=== PATIENT | male | born 1935 | race Hispanic/Latino ===

== ENCOUNTER 2017-11-04 17:26 | Emergency (ER) | payer MEDICARE, OTHER ==
[2017-11-04] MEDS ORDERED: Silver Sulfadiazine 1% Cream 50 GM JAR ONE (18:19)
== END 2017-11-04 18:49 | disposition home or self-care (01) ==
LOC: ERS 17:26
DX: T23.241A Burn of second degree of multiple right fingers (nail), including thumb, initial encounter (principal); T21.12XA Burn of first degree of abdominal wall, initial encounter; T31.0 Burns involving less than 10% of body surface; E11.9 Type 2 diabetes mellitus without complications; I10 Essential (primary) hypertension; Z79.84 Long term (current) use of oral hypoglycemic drugs; Z79.899 Other long term (current) drug therapy; X08.8XXA Exposure to other specified smoke, fire and flames, initial encounter
CPT/HCPCS: 16020

== ENCOUNTER 2017-11-07 10:42 | Emergency (ER) | payer MEDICARE, OTHER ==
[2017-11-07] MEDS ORDERED: Bacitracin Zinc 1 Packet ONE (12:30)
== END 2017-11-07 12:41 | disposition home or self-care (01) ==
LOC: ERS 10:42
DX: T23.231D Burn of second degree of multiple right fingers (nail), not including thumb, subsequent encounter (principal); I10 Essential (primary) hypertension; E11.9 Type 2 diabetes mellitus without complications; Z79.899 Other long term (current) drug therapy; Z79.84 Long term (current) use of oral hypoglycemic drugs; X08.8XXA Exposure to other specified smoke, fire and flames, initial encounter
CPT/HCPCS: 16020

== ENCOUNTER 2017-11-10 09:21 | Outpatient (CLI) | payer MEDICARE, OTHER ==
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
[2017-11-10] MEDS ORDERED: Sodium Chloride 0.9% 15 ML NEB ONE (18:00)
== END 2017-11-10 09:22 | disposition home or self-care (01) ==
LOC: WCC 09:21
PROVIDERS: ATTEND Family Medicine
DX: T23.251D Burn of second degree of right palm, subsequent encounter (principal); E11.9 Type 2 diabetes mellitus without complications; M19.90 Unspecified osteoarthritis, unspecified site; I10 Essential (primary) hypertension
CPT/HCPCS: 97139; 97597; 97598; G0463; 99203; A4218

== ENCOUNTER 2017-11-17 09:11 | Outpatient (CLI) | payer MEDICARE, OTHER ==
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
== END 2017-11-17 09:12 | disposition home or self-care (01) ==
LOC: WCC 09:11
PROVIDERS: ATTEND Family Medicine
DX: T23.251D Burn of second degree of right palm, subsequent encounter (principal)
CPT/HCPCS: 97602

== ENCOUNTER 2020-08-18 09:04 | Observation (INO) | payer MEDICARE, OTHER ==
[2020-08-18] MEDS ORDERED: Cyclobenzaprine 10 MG TAB ONE (09:41)
[2020-08-18] MEDS ORDERED: Ketorolac Tromethamine 30 MG/ML VIAL ONE (09:41)
[2020-08-18 09:53] LABS: #Eosinphils 0.4 thou/uL (0.0-0.7); #Lymphocytes 1.8 thou/uL (1.20-3.40); #Monocytes 0.8 thou/uL (0.11-0.59); #Neutrophils 4.8 thou/uL (1.40-6.50); %Basophils 0.5 % (0.0-1.0); %Eosinophils 4.8 % (0.0-10.0); %Lymphocytes 23.5 % (21.0-51.0); %Monocytes 9.8 % (0.0-10.0); %Neutrophils 61.4 % (42.0-75.0); Hemoglobin 12.6 g/dL (14.0-18.0); Mean Corpuscular HGB CONC 32.4 g/dL (32.0-36.0); Mean Corpuscular Hemoglobin 30.1 pg (27.0-31.0); Mean Corpuscular Volume 92.9 fL (78.0-98.0); Mean Platelet Volume 7.8 fL (7.4-10.4); Platelet Count 229 thou/uL (130-400); RBC Distribution Width 12.2 % (11.5-14.5); Red Blood Cell (RBC) Count 4.18 mill/uL (4.70-6.10); White Blood Cell (WBC) Count 7.8 thou/uL (4.8-10.8)
[2020-08-18 10:27] LABS: ALT (SGPT) 14 U/L (8-55); AST (SGOT) 17 U/L (5-34); Albumin 4.2 g/dL (3.4-4.8); Alkaline Phosphatase 106 U/L (40-110); Anion Gap 16 mmol/L (10-20); BUN (Urea Nitrogen) 15 mg/dL (8.4-25.7); Bilirubin, Total 0.7 mg/dL (0.2-1.2); Calc. Creatinine Clearance 0 mL/min (70-130); Calcium 9.3 mg/dL (7.8-10.44); Carbon Dioxide 23 mmol/L (23-31); Chloride 100 mmol/L (98-107); Globulin 3.8 g/dL (2.4-3.5); Glucose 420 mg/dL (83-110); Potassium 4.4 mmol/L (3.5-5.1); Sodium 135 mmol/L (136-145)
[2020-08-18] MEDS ORDERED: Aspirin Chewable 81 MG TAB ONE (13:25)
[2020-08-18] MEDS ORDERED: HYDROcodone/Acetaminophen 7.5/325 mg Tablet PO PRN (13:56)
[2020-08-18] MEDS ORDERED: HYDROcodone/Acetaminophen 5/325 mg Tablet PO PRN (13:56)
[2020-08-18] MEDS ORDERED: Ondansetron PF 4 MG/2 ML Vial IVP PRN (13:56)
[2020-08-18] MEDS ORDERED: hydrALAZINE 20 MG/ML VIAL SLOW IVP PRN (13:59)
[2020-08-18] MEDS ORDERED: Lidocaine 5% Patch TD SCH (14:00)
[2020-08-18] MEDS ORDERED: Dextrose 50% Abboject 50 ML SYRINGE SLOW IVP PRN ×2 (14:03→21:30)
[2020-08-18] MEDS ORDERED: Dextrose 5% in Water 1,000 ML IV PRN (14:03)
[2020-08-18] MEDS ORDERED: Clopidogrel Bisulfate 75 MG TAB PO SCH (15:00)
[2020-08-18 16:59] VITALS: BMI 25.2
[2020-08-18] MEDS: Insulin Regular 300 UNITS/3 ML VIAL SC PRN (17:22)
[2020-08-18] MEDS ORDERED: Insulin Regular 300 UNITS/3 ML VIAL SC PRN (21:30)
[2020-08-19 01:33] LABS: SARS-CoV-2 PCR by NAA Not Detected (NotDetected)
[2020-08-19] MEDS ORDERED: Transdermal Patch Removal TOP SCH ×2 (02:00→05:00)
[2020-08-19] MEDS: Insulin Regular 300 UNITS/3 ML VIAL SC PRN ×2 (05:29→11:15)
[2020-08-19 05:47] LABS: #Basophils 0.1 thou/uL (0.0-0.2); #Eosinphils 0.6 thou/uL (0.0-0.7); #Lymphocytes 2.3 thou/uL (1.20-3.40); #Monocytes 0.8 thou/uL (0.11-0.59); #Neutrophils 3.6 thou/uL (1.40-6.50); %Eosinophils 7.8 % (0.0-10.0); %Lymphocytes 31.6 % (21.0-51.0); %Monocytes 10.8 % (0.0-10.0); %Neutrophils 48.9 % (42.0-75.0); Hemoglobin 11.7 g/dL (14.0-18.0); Mean Corpuscular HGB CONC 32.6 g/dL (32.0-36.0); Mean Corpuscular Hemoglobin 30.4 pg (27.0-31.0); Mean Platelet Volume 7.9 fL (7.4-10.4); Platelet Count 219 thou/uL (130-400); Red Blood Cell (RBC) Count 3.86 mill/uL (4.70-6.10); White Blood Cell (WBC) Count 7.3 thou/uL (4.8-10.8)
[2020-08-19 05:54] LABS: Hemoglobin A1c 8.3 % (4.0-6.0)
[2020-08-19 06:11] LABS: Anion Gap 13 mmol/L (10-20); BUN (Urea Nitrogen) 13 mg/dL (8.4-25.7); Calc. Creatinine Clearance 58 mL/min (70-130); Calcium 8.9 mg/dL (7.8-10.44); Carbon Dioxide 23 mmol/L (23-31); Cardiac Risk 3.9 (Less than 4.5); Chloride 103 mmol/L (98-107); Cholesterol 159 mg/dl (< 200 Desired); Glucose 213 mg/dL (83-110); HDL Cholesterol 41 mg/dL (>60 Neg Risk); LDL Cholesterol, Calculated 95 mg/dL; Potassium 4.1 mmol/L (3.5-5.1); Sodium 135 mmol/L (136-145); Triglycerides 113 mg/dL (Less than 150)
[2020-08-19] MEDS ORDERED: Lisinopril 5 MG TAB PO SCH (09:00)
[2020-08-19] MEDS ORDERED: Magnesium Oxide 400 MG TAB PO SCH (09:00)
[2020-08-19] MEDS ORDERED: Aspirin 81 mg Enteric Coated Tablet PO SCH (09:00)
[2020-08-19] MEDS ORDERED: Clopidogrel Bisulfate 75 MG TAB PO SCH (09:00)
[2020-08-19] MEDS ORDERED: Alogliptin 6.25 MG TAB PO SCH (09:00)
[2020-08-19] MEDS ORDERED: Atorvastatin Calcium 20 MG TAB PO SCH (09:00)
[2020-08-19] MEDS ORDERED: glipiZIDE 10 MG TAB PO SCH (09:00)
[2020-08-19 16:03] VITALS: BP 117/58; TEMP 98.6
[2020-08-19] MEDS ORDERED: Lidocaine 5% Patch TD SCH (17:00)
== END 2020-08-19 16:38 | disposition home or self-care (01) ==
LOC: ERS 09:04 → 2SE 12:43
PROVIDERS: ADMIT Family Medicine; ATTEND Family Medicine
DX: I77.71 Dissection of carotid artery (principal); I65.22 Occlusion and stenosis of left carotid artery; M47.812 Spondylosis without myelopathy or radiculopathy, cervical region; M50.322 Other cervical disc degeneration at C5-C6 level; I10 Essential (primary) hypertension; E78.5 Hyperlipidemia, unspecified; E11.9 Type 2 diabetes mellitus without complications; Z79.84 Long term (current) use of oral hypoglycemic drugs; Z79.899 Other long term (current) drug therapy; Z20.822 Contact with and (suspected) exposure to COVID-19
CPT/HCPCS: 70496; 70498; 80048; 80053; 80061; 82962 ×2; 83036; 85025 ×2; 96374; 97139; 99284; U0003; U0005; 36415; 36416; 87635; G0378; J1815; J1885

== ENCOUNTER 2021-02-06 08:03 | Outpatient (CLI) | payer MEDICARE, OTHER ==
[2021-02-06] MEDS ORDERED: Iopamidol-370 76% 500 ML 1 ML ONE (09:41)
== END 2021-02-06 08:04 | disposition home or self-care (01) ==
LOC: BICCT 08:03
PROVIDERS: ATTEND Neurological Surgery
DX: I77.71 Dissection of carotid artery (principal); I67.89 Other cerebrovascular disease
CPT/HCPCS: 70496; 70498

== ENCOUNTER 2021-02-25 19:20 | Emergency (ER) | payer MEDICARE, OTHER ==
[2021-02-25] MEDS ORDERED: Ketorolac Tromethamine 30 MG/ML VIAL ONE (20:27)
== END 2021-02-25 21:41 | disposition home or self-care (01) ==
LOC: ERS 19:20
DX: M16.11 Unilateral primary osteoarthritis, right hip (principal); E11.9 Type 2 diabetes mellitus without complications; E78.00 Pure hypercholesterolemia, unspecified; I10 Essential (primary) hypertension; Z79.84 Long term (current) use of oral hypoglycemic drugs; Z79.899 Other long term (current) drug therapy
CPT/HCPCS: 72192; 96372; J1885

== ENCOUNTER 2021-05-12 13:34 | Outpatient (CLI) | payer MEDICARE, OTHER | END 2021-05-12 13:35 | disposition home or self-care (01) | LOC: MRI 13:34 | PROVIDERS: ATTEND Orthopaedic Surgery | DX: M48.061 Spinal stenosis, lumbar region without neurogenic claudication (principal); M47.816 Spondylosis without myelopathy or radiculopathy, lumbar region | CPT/HCPCS: 72148 ==

== ENCOUNTER 2021-10-16 10:14 | Emergency (ER) | payer MEDICARE, OTHER ==
[2021-10-16 11:56] LABS: #Eosinphils 0.7 thou/uL (0.0-0.7); #Lymphocytes 2.1 thou/uL (1.20-3.40); #Monocytes 0.6 thou/uL (0.11-0.59); #Neutrophils 3.3 thou/uL (1.40-6.50); %Basophils 0.7 % (0.0-1.0); %Eosinophils 9.8 % (0.0-10.0); %Lymphocytes 30.8 % (21.0-51.0); %Monocytes 9.4 % (0.0-10.0); %Neutrophils 49.4 % (42.0-75.0); Hemoglobin 12.3 g/dL (14.0-18.0); Mean Corpuscular Hemoglobin 30.7 pg (27.0-31.0); Mean Corpuscular Volume 92.9 fL (78.0-98.0); Mean Platelet Volume 8.3 fL (7.4-10.4); Platelet Count 234 thou/uL (130-400); Red Blood Cell (RBC) Count 4.01 mill/uL (4.70-6.10); White Blood Cell (WBC) Count 6.8 thou/uL (4.8-10.8)
[2021-10-16 12:09] LABS: ALT (SGPT) 9 U/L (8-55); AST (SGOT) 13 U/L (5-34); Albumin 3.8 g/dL (3.4-4.8); Alkaline Phosphatase 91 U/L (40-110); Anion Gap 13 mmol/L (10-20); BUN (Urea Nitrogen) 13 mg/dL (8.4-25.7); Bilirubin, Total 0.5 mg/dL (0.2-1.2); Calc. Creatinine Clearance 0 mL/min (70-130); Calcium 9.2 mg/dL (7.8-10.44); Carbon Dioxide 26 mmol/L (23-31); Chloride 102 mmol/L (98-107); Estimated GFR 55; Globulin 3.2 g/dL (2.4-3.5); Glucose 211 mg/dL (83-110); Potassium 4.2 mmol/L (3.5-5.1); Sodium 137 mmol/L (136-145)
[2021-10-16 12:30] LABS: Bilirubin Negative (Negative); Blood, Urine Negative (Negative); Clarity Clear (Clear); Glucose, Urine (Dipstick) 500 mg/dL (Negative); Ketone, Urine Negative (Negative); Leukocyte Negative Leu/uL (Negative); Nitrite Negative (Negative); Protein, Urine (Dipstick) 10 mg/dL (Neg-Trace); Specific Gravity, Urine 1.018 (1.002-1.036); Urobilinogen Normal mg/dL (Less than 2); pH, Urine 6.5 (5.0-9.0)
== END 2021-10-16 12:45 | disposition home or self-care (01) ==
LOC: ERS 10:14
DX: L03.115 Cellulitis of right lower limb (principal); E11.9 Type 2 diabetes mellitus without complications; I10 Essential (primary) hypertension; E78.5 Hyperlipidemia, unspecified; Z79.84 Long term (current) use of oral hypoglycemic drugs; Z79.899 Other long term (current) drug therapy
CPT/HCPCS: 36415; 80053; 81003; 83605; 85025

== ENCOUNTER 2022-01-05 06:17 | Observation (INO) | payer MEDICARE, OTHER ==
[2022-01-01 12:53] VITALS: BMI 29.0
[2022-01-05] MEDS ORDERED: Sodium Chloride 0.9% 100 ML ONE ×2 (06:55→09:29)
[2022-01-05] MEDS ORDERED: Tranexamic Acid 1,000 MG/10 ML VIAL ONE (06:55)
[2022-01-05] MEDS ORDERED: Vancomycin (BATCH) 1.5 GRAM/300 ML BAG ONE ×2 (06:55→09:28)
[2022-01-05] MEDS ORDERED: Fentanyl 100 MCG/2 ML VIAL ONE (08:58)
[2022-01-05] MEDS ORDERED: Fentanyl 100 MCG/2 ML VIAL SLOW IVP PRN (09:07)
[2022-01-05] MEDS ORDERED: Zolpidem Tartrate 5 MG TAB PO PRN ×2 (09:07→09:30)
[2022-01-05] MEDS ORDERED: Promethazine HCl 25 MG/ML VIAL IM PRN ×3 (09:07→10:18)
[2022-01-05] MEDS ORDERED: diphenhydrAMINE 25 MG CAP PO PRN (09:07)
[2022-01-05] MEDS ORDERED: traMADol HCl 50 MG TAB PO PRN ×4 (09:07→09:30)
[2022-01-05] MEDS ORDERED: Ondansetron PF 4 MG/2 ML Vial IVP PRN ×2 (09:07→09:30)
[2022-01-05] MEDS ORDERED: Acetaminophen 325 MG TAB PO PRN (09:07)
[2022-01-05] MEDS ORDERED: HYDROcodone/Acetaminophen 10/325 mg Tablet PO PRN ×3 (09:07→09:30)
[2022-01-05] MEDS ORDERED: Bupivacaine PF 0.5% 30 ML VIAL ONE (09:12)
[2022-01-05] MEDS ORDERED: Fentanyl 100 MCG/2 ML VIAL IV PRN (09:25)
[2022-01-05] MEDS ORDERED: CEFAZOLIN 2 GM VIAL ONE (09:29)
[2022-01-05] MEDS ORDERED: Ropivacaine 0.2% 550 ML 550 ML NERVE BLCK SCH (09:30)
[2022-01-05] MEDS ORDERED: PROPOFOL 200 MG/20 ML VIAL ONE (09:35)
[2022-01-05] MEDS ORDERED: ePHEDrine 50 MG/ML VIAL ONE (09:35)
[2022-01-05] MEDS ORDERED: Dexamethasone 20 MG/5 ML VIAL ONE (09:35)
[2022-01-05] MEDS ORDERED: Ondansetron PF 4 MG/2 ML Vial ONE (09:35)
[2022-01-05] MEDS ORDERED: Ropivacaine 0.5% HCl/PF (150 MG/30 ML VIAL) ONE (09:35)
[2022-01-05] MEDS ORDERED: Ondansetron HCl/PF 4 MG/2 ML Vial IVP PRN (10:18)
[2022-01-05] MEDS ORDERED: Promethazine HCl 25 MG/ML VIAL IVPB PRN (10:18)
[2022-01-05] MEDS: Ketorolac Tromethamine 30 MG/ML VIAL IVP SCH ×2 (12:00→16:36)
[2022-01-05] MEDS ORDERED: Dextrose 5% in Water 1,000 ML IV PRN (13:12)
[2022-01-05] MEDS ORDERED: Dextrose 50% Abboject 50 ML SYRINGE SLOW IVP PRN (13:12)
[2022-01-05] MEDS ORDERED: HumaLOG 300 UNITS/3 ML VIAL SC PRN ×2 (13:12)
[2022-01-05] MEDS: Sodium Chloride 0.9% 1,000 ML IV SCH ×2 (16:34→20:07)
[2022-01-05] MEDS: metFORMIN 500 MG TAB PO SCH (16:34)
[2022-01-05] MEDS: CEFAZOLIN 2 GM in Sodium Chloride 0.9% 100 ML IVPB SCH (16:38)
[2022-01-05] MEDS: Aspirin 81 mg Enteric Coated Tablet PO SCH (20:07)
[2022-01-05] MEDS ORDERED: Atorvastatin Calcium 20 MG TAB PO SCH (21:00)
[2022-01-06] MEDS: Ketorolac Tromethamine 30 MG/ML VIAL IVP SCH ×3 (00:59→13:10)
[2022-01-06] MEDS: HYDROcodone/Acetaminophen 10/325 mg Tablet PO PRN ×2 (02:27→09:24)
[2022-01-06] MEDS: CEFAZOLIN 2 GM in Sodium Chloride 0.9% 100 ML IVPB SCH (02:29)
[2022-01-06 05:28] LABS: Hemoglobin 10.3 g/dL (14.0-18.0); Mean Corpuscular HGB CONC 32.8 g/dL (32.0-36.0); Mean Corpuscular Volume 94.4 fL (78.0-98.0); Mean Platelet Volume 8.4 fL (7.4-10.4); Platelet Count 205 thou/uL (130-400); RBC Distribution Width 12.6 % (11.5-14.5); Red Blood Cell (RBC) Count 3.31 mill/uL (4.70-6.10)
[2022-01-06] MEDS: Sodium Chloride 0.9% 1,000 ML IV SCH ×2 (06:19→09:07)
[2022-01-06] MEDS ORDERED: HumaLOG 300 UNITS/3 ML VIAL SC PRN (06:20)
[2022-01-06] MEDS ORDERED: glipiZIDE 10 MG TAB PO SCH ×2 (07:30)
[2022-01-06] MEDS ORDERED: Ferrous Gluconate 324 MG TAB PO SCH (08:00)
[2022-01-06 08:03] VITALS: TEMP 97.7
[2022-01-06] MEDS ORDERED: Multivitamin W/ Minerals 1 TAB PO SCH (09:00)
[2022-01-06] MEDS ORDERED: Lisinopril 5 MG TAB PO SCH (09:00)
[2022-01-06] MEDS ORDERED: Alogliptin 6.25 MG TAB PO SCH (09:00)
[2022-01-06] MEDS ORDERED: Senokot S 8.6-50 MG TAB PO SCH (09:00)
[2022-01-06] MEDS ORDERED: Magnesium Oxide 400 MG TAB PO SCH (09:00)
[2022-01-06] MEDS: metFORMIN 500 MG TAB PO SCH (09:23)
[2022-01-06] MEDS: Aspirin 81 mg Enteric Coated Tablet PO SCH (09:23)
[2022-01-06 12:22] VITALS: BP 119/65
== END 2022-01-06 14:40 | disposition home or self-care (01) ==
LOC: SDC 06:17 → SJJU 12:43
PROVIDERS: ADMIT Orthopaedic Surgery; ATTEND Orthopaedic Surgery
PROC: 0SRC0J9 Replacement of Right Knee Joint with Synthetic Substitute, Cemented, Open Approach (ICD-10-PCS; principal; 2022-01-05)
PROC: 8E0YXBZ Computer Assisted Procedure of Lower Extremity (ICD-10-PCS; 2022-01-05)
DX: M17.11 Unilateral primary osteoarthritis, right knee (principal); Q74.1 Congenital malformation of knee; E78.5 Hyperlipidemia, unspecified; I12.9 Hypertensive chronic kidney disease with stage 1 through stage 4 chronic kidney disease, or unspecified chronic kidney disease; E11.22 Type 2 diabetes mellitus with diabetic chronic kidney disease; N18.2 Chronic kidney disease, stage 2 (mild); I65.22 Occlusion and stenosis of left carotid artery; E53.8 Deficiency of other specified B group vitamins; Z79.02 Long term (current) use of antithrombotics/antiplatelets; Z79.82 Long term (current) use of aspirin; Z79.84 Long term (current) use of oral hypoglycemic drugs; Z79.899 Other long term (current) drug therapy; Z96.652 Presence of left artificial knee joint
CPT/HCPCS: 20985; 27447; 73560; 82962 ×2; 85027; 97110 ×2; 97116 ×2; 97530 ×2; A4306; C1713; C1776; J3370; 36415; 36416; 96374; 96375; G0378; J0690; J1100; J1885; J2405; J2704; J2795; J3010; J3490; J7050; S0020